=== PATIENT | male | born 1975 | race Caucasian/White ===

== ENCOUNTER 2017-11-03 20:11 | Inpatient (IN) | payer MEDICARE, MEDICAID ==
[~2017-11-03] VITALS: Ht 175.3 cm; Wt 95.3 kg
[~2017-11-03 20:11] MED LIST: LITH300C3 PO; OMEG-135 PO; QUET200T PO
[2017-11-03 22:06] LABS: BASOPHILS % (AUTO) 0.4 % (0.0-2.0); EOSINOPHILS % (AUTO) 0.7 % (1.0-6.0); HEMATOCRIT 45.8 % (41-53); HEMOGLOBIN 15.9 g/dL (13.5-17.5); LYMPHOCYTES # (AUTO) 1.8 K/uL (1.0-4.8); MEAN CORPUSCULAR HEMOGLOBIN 30.7 pg (26.0-34.0); MEAN CORPUSCULAR HGB CONC 34.8 G/dL (31.0-37.0); MEAN CORPUSCULAR VOLUME 88 fL (80-100); MONOCYTES # (AUTO) 0.9 K/uL (0.1-1.0); MONOCYTES % (AUTO) 6.2 % (2.0-9.0); NEUTROPHILS # (AUTO) 11.3 K/uL (1.8-7.7); NEUTROPHILS % (AUTO) 79.7 % (40.0-70.0); PLATELET COUNT (AUTO) 236 K/uL (150-450); RED BLOOD CELL COUNT(AUTO) 5.19 MIL/uL (4.50-5.90); RED CELL DISTRIBUTION WIDTH 13.2 % (11.5-14.5)
[2017-11-03 22:17] LABS: ANION GAP 10 mmol/L (8-16); CALCIUM, TOTAL 9.2 mg/dL (8.8-10.5); CARBON DIOXIDE 25 mmol/L (22-29); CHLORIDE 106 mmol/L (98-107); CREATININE 1.34 mg/dL (0.60-1.30); GLOMERULAR FILTR. RATE CALC 59 mL/min (>60); GLUCOSE,RANDOM 173 mg/dL (70-110); POTASSIUM 4.3 mmol/L (3.5-5.1); SODIUM SERUM 141 mmol/L (136-145); UREA NITROGEN, BLOOD 12 mg/dL (7-18)
[2017-11-03 22:23] LABS: ALANINE AMINOTRANSFERASE 91 U/L (12-78); ALKALINE PHOSPHATASE 80 U/L (46-116); ASPARTATE AMINOTRANSFERASE 36 U/L (15-37); BILIRUBIN,TOTAL 0.7 mg/dL (0.1-1.0); TOTAL PROTEIN, SERUM 7.4 g/dL (6.4-8.2)
[2017-11-03 22:29] LABS: AMPHET/METH SCREEN,URINE NEGATIVE (NEGATIVE); BARBITURATE SCREEN, URINE NEGATIVE (NEGATIVE); BENZODIAZEPINES SCREEN,URINE NEGATIVE (NEGATIVE); CANNABINOID SCREEN,URINE POSITIVE (NEGATIVE); COCAINE SCREEN,URINE NEGATIVE (NEGATIVE); METHADONE SCREEN, URINE NEGATIVE (NEGATIVE); OPIATE SCREEN,URINE NEGATIVE (NEGATIVE)
[2017-11-03 22:32] LABS: PHENCYCLIDINE SCREEN,URINE NEGATIVE (NEGATIVE)
[2017-11-04] MEDS ORDERED: QUEtiapine FUMARATE 50 MG ER TABLET PO ONE (00:15)
[2017-11-04] MEDS ORDERED: QUEtiapine FUMARATE 200 MG ER TABLET PO ONE (00:15)
[2017-11-04] MEDS ORDERED: HALOPERIDOL 5 MG TABLET PO PRN (00:45)
[2017-11-04] MEDS ORDERED: ZOLPIDEM TARTRATE 10 MG TABLET PO PRN (00:45)
[2017-11-04 01:04] LABS: CHOL/HDL RATIO 6.5 (4.2-7.3); CHOLESTEROL 221 mg/dL (131-200); HDL CHOLESTEROL 34 mg/dL (40-60); LDL CHOL (CALC.) 146 mg/dL (0-130); TRIGLYCERIDES 203 mg/dL (15-150)
[2017-11-04] MEDS: LORazepam 2 MG TABLET PO PRN (12:07)
[2017-11-04 13:18] VITALS: BP 127/80
[2017-11-04] MEDS: NICOTINE 14 MG/24 HOUR PATCH TD SCH (13:55)
[2017-11-04 16:25] VITALS: BP 122/72
[2017-11-04] MEDS: LITHIUM CARBONATE 300 MG CAPSULE PO SCH (20:33)
[2017-11-04] MEDS: QUEtiapine FUMARATE 300 MG TABLET PO SCH (20:33)
[2017-11-05] VITALS: BP 117/71
[2017-11-05] MEDS: OMEGA-3/DHA/EPA/FISH OIL 1,000 MG CAPSULE PO SCH (08:09)
[2017-11-05] MEDS: NICOTINE 14 MG/24 HOUR PATCH TD SCH (08:10)
[2017-11-05 08:11] LABS: BASOPHILS % (AUTO) 0.6 % (0.0-2.0); EOSINOPHILS % (AUTO) 2.2 % (1.0-6.0); HEMATOCRIT 43.9 % (41-53); HEMOGLOBIN 15.3 g/dL (13.5-17.5); LYMPHOCYTES # (AUTO) 2.8 K/uL (1.0-4.8); LYMPHOCYTES % (AUTO) 27.9 % (22.0-44.0); MEAN CORPUSCULAR HEMOGLOBIN 30.8 pg (26.0-34.0); MEAN CORPUSCULAR HGB CONC 34.8 G/dL (31.0-37.0); MEAN CORPUSCULAR VOLUME 88 fL (80-100); MONOCYTES # (AUTO) 0.8 K/uL (0.1-1.0); NEUTROPHILS # (AUTO) 6.3 K/uL (1.8-7.7); NEUTROPHILS % (AUTO) 61.3 % (40.0-70.0); PLATELET COUNT (AUTO) 217 K/uL (150-450); RED BLOOD CELL COUNT(AUTO) 4.97 MIL/uL (4.50-5.90); RED CELL DISTRIBUTION WIDTH 13.4 % (11.5-14.5)
[2017-11-05 08:18] VITALS: BP 127/75
[2017-11-05 08:33] LABS: HEMOGLOBIN A1C 5.3 % (4.5-6.2)
[2017-11-05 09:03] LABS: FREE T4 (FREE THYROXINE) 0.85 ng/dL (0.76-1.46); THYROID STIMULATING HORMONE 3.78 uIU/mL (0.36-3.74)
[2017-11-05] MEDS ORDERED: ACETAMINOPHEN 325 MG TABLET PO PRN (09:45)
[2017-11-05] MEDS ORDERED: ONDANSETRON HCL 4 MG TABLET PO PRN (09:45)
[2017-11-05] MEDS ORDERED: CloNIDine HCL 0.1 MG TABLET PO PRN (09:45)
[2017-11-05] MEDS ORDERED: LOPERAMIDE HCL 2 MG CAPSULE PO PRN (09:45)
[2017-11-05] MEDS ORDERED: ALBUTEROL SULFATE HFA 90 MCG/PUFF 8 GM INHALER IH PRN (09:45)
[2017-11-05] MEDS ORDERED: MAG HYDROX/AL HYDROX/SIMETH ES 30 ML SUSPENSION UDCUP PO PRN (09:45)
[2017-11-05] MEDS ORDERED: BENZOCAINE/MENTHOL LOZENGE MM PRN (09:45)
[2017-11-05] MEDS ORDERED: PETROLATUM,WHITE 71 GM JELLY TP PRN (09:45)
[2017-11-05] MEDS ORDERED: MAGNESIUM HYDROXIDE SUSPENSION 30 ML UDCUP PO PRN (09:45)
[2017-11-05] MEDS ORDERED: IBUPROFEN 600 MG TABLET PO PRN (09:45)
[2017-11-05] MEDS ORDERED: BACITRACIN 28.4 GM OINTMENT TP PRN (09:45)
[2017-11-05 16:20] VITALS: BP 128/78
[2017-11-05] MEDS: QUEtiapine FUMARATE 300 MG TABLET PO SCH (20:41)
[2017-11-05] MEDS: LITHIUM CARBONATE 300 MG CAPSULE PO SCH (20:41)
[2017-11-06 05:08] VITALS: BP 104/66
[2017-11-06] MEDS: OMEGA-3/DHA/EPA/FISH OIL 1,000 MG CAPSULE PO SCH (08:10)
[2017-11-06] MEDS: LORazepam 2 MG TABLET PO PRN (08:10)
[2017-11-06] MEDS: NICOTINE 14 MG/24 HOUR PATCH TD SCH (08:10)
[2017-11-06 08:41] LABS: ANION GAP 10 mmol/L (8-16); CALCIUM, TOTAL 8.8 mg/dL (8.8-10.5); CARBON DIOXIDE 25 mmol/L (22-29); CHLORIDE 107 mmol/L (98-107); GLOMERULAR FILTR. RATE CALC > 60 mL/min (>60); GLUCOSE,RANDOM 85 mg/dL (70-110); POTASSIUM 3.8 mmol/L (3.5-5.1); SODIUM SERUM 142 mmol/L (136-145); UREA NITROGEN, BLOOD 14 mg/dL (7-18)
[2017-11-06 08:44] VITALS: BP 122/69
[2017-11-06 18:40] VITALS: BP 122/75
[2017-11-06] MEDS: QUEtiapine FUMARATE 300 MG TABLET PO SCH (20:32)
[2017-11-06] MEDS: LITHIUM CARBONATE 300 MG CAPSULE PO SCH (20:32)
[2017-11-07 06:01] VITALS: BP 112/73
[2017-11-07] MEDS: NICOTINE 14 MG/24 HOUR PATCH TD SCH (08:01)
[2017-11-07] MEDS: OMEGA-3/DHA/EPA/FISH OIL 1,000 MG CAPSULE PO SCH (08:01)
[2017-11-07 08:32] VITALS: BP 122/71
[2017-11-07 16:12] VITALS: BP 125/72
[2017-11-07] MEDS: QUEtiapine FUMARATE 300 MG TABLET PO SCH (20:12)
[2017-11-07] MEDS: LITHIUM CARBONATE 300 MG CAPSULE PO SCH (20:12)
[2017-11-08 01:13] VITALS: BP 101/63
[2017-11-08] MEDS: NICOTINE 14 MG/24 HOUR PATCH TD SCH (08:07)
[2017-11-08] MEDS: OMEGA-3/DHA/EPA/FISH OIL 1,000 MG CAPSULE PO SCH (08:07)
[2017-11-08 08:17] LABS: BASOPHILS % (AUTO) 0.5 % (0.0-2.0); HEMATOCRIT 44.6 % (41-53); HEMOGLOBIN 15.4 g/dL (13.5-17.5); LYMPHOCYTES % (AUTO) 28.2 % (22.0-44.0); MEAN CORPUSCULAR HEMOGLOBIN 30.4 pg (26.0-34.0); MEAN CORPUSCULAR HGB CONC 34.4 G/dL (31.0-37.0); MEAN CORPUSCULAR VOLUME 88 fL (80-100); MONOCYTES % (AUTO) 9.3 % (2.0-9.0); NEUTROPHILS # (AUTO) 6.3 K/uL (1.8-7.7); PLATELET COUNT (AUTO) 246 K/uL (150-450); RED BLOOD CELL COUNT(AUTO) 5.05 MIL/uL (4.50-5.90); RED CELL DISTRIBUTION WIDTH 13.3 % (11.5-14.5)
[2017-11-08 08:23] LABS: MAGNESIUM 2.4 mg/dL (1.80-2.40); PHOSPHORUS 3.5 mg/dL (2.5-4.9)
[2017-11-08 08:39] VITALS: BP 112/71
[2017-11-08 08:46] LABS: LITHIUM 0.69 mmol/L (0.60-1.20)
[2017-11-08 16:00] VITALS: BP 141/83
[2017-11-08] MEDS: QUEtiapine FUMARATE 300 MG TABLET PO SCH (20:10)
[2017-11-08] MEDS: LITHIUM CARBONATE 300 MG CAPSULE PO SCH (20:10)
[2017-11-09 01:52] VITALS: BP 103/62
[2017-11-09] MEDS: OMEGA-3/DHA/EPA/FISH OIL 1,000 MG CAPSULE PO SCH (08:12)
[2017-11-09] MEDS: NICOTINE 14 MG/24 HOUR PATCH TD SCH (08:14)
[2017-11-09 08:30] VITALS: BP 125/76
[2017-11-09 16:19] VITALS: BP 124/87
[2017-11-09] MEDS: QUEtiapine FUMARATE 300 MG TABLET PO SCH (20:34)
[2017-11-09] MEDS: LITHIUM CARBONATE 300 MG CAPSULE PO SCH (20:34)
[2017-11-10 01:56] VITALS: BP 101/61
[2017-11-10] MEDS: LEVOTHYROXINE SODIUM 25 MCG TABLET PO SCH (06:45)
[2017-11-10] MEDS: OMEGA-3/DHA/EPA/FISH OIL 1,000 MG CAPSULE PO SCH (08:12)
[2017-11-10] MEDS: NICOTINE 14 MG/24 HOUR PATCH TD SCH (08:12)
[2017-11-10 08:33] VITALS: BP 108/66
[2017-11-10 16:14] VITALS: BP 115/66
[2017-11-10] MEDS: LITHIUM CARBONATE 300 MG CAPSULE PO SCH (20:32)
[2017-11-10] MEDS: QUEtiapine FUMARATE 300 MG TABLET PO SCH (20:32)
[2017-11-11 04:06] VITALS: BP 105/75
[2017-11-11] MEDS: LEVOTHYROXINE SODIUM 25 MCG TABLET PO SCH (06:45)
[2017-11-11] MEDS ORDERED: LEVO50 PO (06:54)
[2017-11-11] MEDS ORDERED: ALBU8HFA IH ×2 (07:50→07:51)
[2017-11-11] MEDS: OMEGA-3/DHA/EPA/FISH OIL 1,000 MG CAPSULE PO SCH (08:06)
[2017-11-11] MEDS: NICOTINE 14 MG/24 HOUR PATCH TD SCH ×2 (08:07→09:23)
[2017-11-11 08:53] VITALS: BP 103/68
== END 2017-11-11 09:55 | disposition home or self-care (01) | DRG 885 ==
LOC: EMS 20:13 → B2X 11-04 10:03
PROVIDERS: ADMIT Psychiatry & Neurology Psychiatry; ATTEND Psychiatry & Neurology Psychiatry
DX: F20.0 Paranoid schizophrenia (principal); N17.9 Acute kidney failure, unspecified; E78.1 Pure hyperglyceridemia; F17.200 Nicotine dependence, unspecified, uncomplicated; E78.5 Hyperlipidemia, unspecified; F12.90 Cannabis use, unspecified, uncomplicated; E03.9 Hypothyroidism, unspecified; G47.00 Insomnia, unspecified; Z79.899 Other long term (current) drug therapy; Z71.6 Tobacco abuse counseling; Z71.51 Drug abuse counseling and surveillance of drug abuser; Z72.89 Other problems related to lifestyle; Z71.41 Alcohol abuse counseling and surveillance of alcoholic
CPT/HCPCS: 80074; 83036; 83735; 84100; 84439; 84443; 87081; 99285; G0480

== ENCOUNTER 2018-08-12 09:04 | Emergency (ER) | payer MEDICARE, OTHER ==
[~2018-08-12] VITALS: Ht 175.3 cm; Wt 104.5 kg
[~2018-08-12 09:04] MED LIST changes: +ALBU8HFA IH; +LEVO50 PO
[2018-08-12] MEDS ORDERED: QUET50XR PO (10:24)
[2018-08-12 11:43] LABS: AMPHET/METH SCREEN,URINE NEGATIVE (NEGATIVE); BARBITURATE SCREEN, URINE NEGATIVE (NEGATIVE); BENZODIAZEPINES SCREEN,URINE NEGATIVE (NEGATIVE); CANNABINOID SCREEN,URINE POSITIVE (NEGATIVE); COCAINE SCREEN,URINE NEGATIVE (NEGATIVE); METHADONE SCREEN, URINE NEGATIVE (NEGATIVE); OPIATE SCREEN,URINE NEGATIVE (NEGATIVE)
[2018-08-12 11:44] LABS: PHENCYCLIDINE SCREEN,URINE NEGATIVE (NEGATIVE)
[2018-08-12 11:50] LABS: BASOPHILS % (AUTO) 0.7 % (0.0-2.0); EOSINOPHILS % (AUTO) 2.7 % (1.0-6.0); HEMATOCRIT 44.5 % (41-53); HEMOGLOBIN 15.2 g/dL (13.5-17.5); LYMPHOCYTES # (AUTO) 1.4 K/uL (1.0-4.8); LYMPHOCYTES % (AUTO) 18.7 % (22.0-44.0); MEAN CORPUSCULAR HEMOGLOBIN 30.4 pg (26.0-34.0); MEAN CORPUSCULAR HGB CONC 34.1 G/dL (31.0-37.0); MEAN CORPUSCULAR VOLUME 89 fL (80-100); MONOCYTES # (AUTO) 0.4 K/uL (0.1-1.0); MONOCYTES % (AUTO) 5.8 % (2.0-9.0); NEUTROPHILS # (AUTO) 5.6 K/uL (1.8-7.7); NEUTROPHILS % (AUTO) 72.1 % (40.0-70.0); PLATELET COUNT (AUTO) 282 K/uL (150-450); RED BLOOD CELL COUNT(AUTO) 4.98 MIL/uL (4.50-5.90); RED CELL DISTRIBUTION WIDTH 12.6 % (11.5-14.5)
[2018-08-12 12:01] LABS: ANION GAP 8 mmol/L (8-16); CALCIUM, TOTAL 8.6 mg/dL (8.8-10.5); CARBON DIOXIDE 24 mmol/L (22-29); CHLORIDE 108 mmol/L (98-107); CREATININE 1.14 mg/dL (0.60-1.30); GLOMERULAR FILTR. RATE CALC > 60 mL/min (>60); GLUCOSE,RANDOM 115 mg/dL (70-110); SODIUM SERUM 140 mmol/L (136-145); UREA NITROGEN, BLOOD 6 mg/dL (7-18)
[2018-08-12 12:15] LABS: ALANINE AMINOTRANSFERASE 50 U/L (12-78); ALBUMIN 3.8 g/dL (3.4-5.0); ALKALINE PHOSPHATASE 70 U/L (46-116); ASPARTATE AMINOTRANSFERASE 27 U/L (15-37); BILIRUBIN,TOTAL 0.6 mg/dL (0.1-1.0); TOTAL PROTEIN, SERUM 6.9 g/dL (6.4-8.2)
[2018-08-12 12:57] VITALS: BP 122/74
== END 2018-08-12 12:58 | disposition home or self-care (01) ==
LOC: EMS 09:05
DX: F31.9 Bipolar disorder, unspecified (principal); Z79.899 Other long term (current) drug therapy
CPT/HCPCS: 36415; 80053; 80307; 85025; 99284; G0480